=== PATIENT | female | born 1970 | race Caucasian/White ===

== ENCOUNTER → 2022-01-16 | Outpatient (CLI) | payer OTHER ==
[~2022-01-16] MED LIST: BYETTA SC; DELTASONE PO; GLUC500T PO; NOVOLOG INSULIN SC
== END ==
LOC: M WHC 12:22
PROVIDERS: ATTEND Physician Assistant
DX: Z12.31 Encounter for screening mammogram for malignant neoplasm of breast (principal)

== ENCOUNTER → 2022-04-04 | Outpatient (REF) | payer OTHER ==
[2022-04-04 17:07] LABS: ALBUMIN 3.5 GM/DL (3.2-5.2); ALT/SGPT 25 U/L (12-78); BILIRUBIN,TOTAL 2.5 MG/DL (0.2-1.0); BLOOD UREA NITROGEN 12 MG/DL (7-18); CALCIUM LEVEL 8.6 MG/DL (8.5-10.1); CARBON DIOXIDE LEVEL 26 MEQ/L (21-32); CHLORIDE LEVEL 102 MEQ/L (98-107); CREATININE FOR GFR 0.53 MG/DL (0.55-1.30); GLOMERULAR FILTRATION RATE > 60.0 (>58); GLUCOSE, FASTING 267 MG/DL (70-100); SODIUM LEVEL 135 MEQ/L (136-145); TOTAL PROTEIN 6.5 GM/DL (6.4-8.2)
[2022-04-04 17:08] LABS: HEMOGLOBIN A1c 8.2 %
[2022-04-04 18:31] LABS: MALB URINE SIEMENS 82.3 MG/L; MAU/CREAT RATIO 57.5 MCG/MG (0.0-30.0)
== END ==
LOC: M LAB REF 16:12
PROVIDERS: ATTEND Physician Assistant
DX: E11.3211 Type 2 diabetes mellitus with mild nonproliferative diabetic retinopathy with macular edema, right eye (principal)

== ENCOUNTER → 2022-05-13 | Outpatient (CLI) | payer OTHER | LOC: M WHC 06:34 | PROVIDERS: ATTEND Physician Assistant | DX: E80.6 Other disorders of bilirubin metabolism (principal); K80.20 Calculus of gallbladder without cholecystitis without obstruction ==

== ENCOUNTER → 2022-07-11 | Outpatient (CLI) | payer OTHER | LOC: M LABSMTC 08:57 | PROVIDERS: ATTEND Anesthesiology | DX: Z01.812 Encounter for preprocedural laboratory examination (principal); Z20.822 Contact with and (suspected) exposure to COVID-19 ==

== ENCOUNTER 2022-07-16 06:51 | Day surgery (SDC) | payer OTHER ==
[~2022-07-16] VITALS: Ht 157.5 cm; Wt 70.8 kg
[~2022-07-16 06:51] MED LIST changes: +ATOR1TAB19 PO; +BASA100I SC; +LISI5TAB11 PO; +METF500T13 PO; +NS 1,000 ML IV ONE; +TRUL0.5I SC; +VITA100093 PO
[2022-07-16] MEDS ORDERED: INSULIN LISPRO (NovoLOG) PER UNIT SC ONE (07:45)
[2022-07-16] MEDS ORDERED: propofoL 200 MG/20 ML VIAL As Ordered ONE (07:55)
[2022-07-16] MEDS ORDERED: LIDOCAINE 2% 100MG/5ML SDV (FOR ANES.) As Ordered ONE ×2 (07:55→08:07)
[2022-07-16 08:40] VITALS: BP 131/69
== END 2022-07-16 08:55 | disposition home or self-care (01) ==
LOC: M OPP 06:51
PROVIDERS: ATTEND Surgery
DX: K64.0 First degree hemorrhoids (principal); R19.4 Change in bowel habit; E11.9 Type 2 diabetes mellitus without complications; I10 Essential (primary) hypertension; Z79.02 Long term (current) use of antithrombotics/antiplatelets; Z79.4 Long term (current) use of insulin; Z79.899 Other long term (current) drug therapy
CPT/HCPCS: 45378; J1815

== ENCOUNTER → 2022-10-16 | Outpatient (REF) | payer OTHER ==
[~2022-10-16] MED LIST changes: -NS 1,000 ML IV ONE
[2022-10-16 17:03] LABS: HEMOGLOBIN 16.6 g/dl (12.0-15.5); MEAN CORPUSCULAR HEMOGLOBIN 30.5 pg (27.0-33.0); MEAN CORPUSCULAR HGB CONC 36.1 g/dl (32.0-36.5); MEAN CORPUSCULAR VOLUME 84.4 fl (80.0-96.0); PLATELET COUNT, AUTOMATED 251 10^3/uL (150-450); RED BLOOD COUNT 5.45 10^6/uL (4.00-5.40); WHITE BLOOD COUNT 10.1 10^3/uL (4.0-10.0)
[2022-10-16 17:19] LABS: ALBUMIN 3.6 G/DL (3.2-5.2); ALKALINE PHOSPHATASE 77 U/L (46-116); ALT/SGPT 19 U/L (7.0-40); AST/SGOT 11 U/L (<34); BILIRUBIN,TOTAL 2.6 MG/DL (0.3-1.2); BLOOD UREA NITROGEN 16 MG/DL (9-23); CARBON DIOXIDE LEVEL 28 MMOL/L (20-31); CHLORIDE LEVEL 102 MMOL/L (98-107); CREATININE FOR GFR 0.54 MG/DL (0.55-1.30); GLOMERULAR FILTRATION RATE > 60.0 (>51); GLUCOSE, FASTING 234 MG/DL (60-100); POTASSIUM SERUM 5.2 MMOL/L (3.5-5.1); SODIUM LEVEL 135 MMOL/L (136-145); TOTAL PROTEIN 6.5 G/DL (5.7-8.2)
[2022-10-16 17:26] LABS: HEMOGLOBIN A1c 8.6 % (4.0-6.0)
== END ==
LOC: M LAB REF 16:09
PROVIDERS: ATTEND Physician Assistant
DX: E11.65 Type 2 diabetes mellitus with hyperglycemia (principal); E11.40 Type 2 diabetes mellitus with diabetic neuropathy, unspecified

== ENCOUNTER → 2022-10-31 | Outpatient (REF) | payer OTHER ==
[2022-10-31 17:59] LABS: CREATININE, URINE 153.9 MG/DL
[2022-10-31 18:00] LABS: MAU/CREAT RATIO 99.4 MCG/MG (0.0-30.0)
== END ==
LOC: M LAB REF 16:13
PROVIDERS: ATTEND Physician Assistant
DX: E11.65 Type 2 diabetes mellitus with hyperglycemia (principal); E11.40 Type 2 diabetes mellitus with diabetic neuropathy, unspecified; N30.01 Acute cystitis with hematuria

== ENCOUNTER → 2023-10-21 | Outpatient (REF) | payer OTHER ==
[2023-10-21 17:43] LABS: CREATININE, URINE 52.6 MG/DL; MAU/CREAT RATIO 134.9 MCG/MG (0.0-30.0)
== END ==
LOC: M LAB REF 16:30
PROVIDERS: ATTEND Physician Assistant
DX: E11.65 Type 2 diabetes mellitus with hyperglycemia (principal); E11.40 Type 2 diabetes mellitus with diabetic neuropathy, unspecified

== ENCOUNTER → 2023-10-24 | Outpatient (CLI) | payer OTHER ==
[2023-10-24 10:09] LABS: HEMATOCRIT 39.2 % (36.0-47.0); HEMOGLOBIN 14.3 g/dl (12.0-15.5); MEAN CORPUSCULAR HEMOGLOBIN 30.4 pg (27.0-33.0); MEAN CORPUSCULAR HGB CONC 36.5 g/dl (32.0-36.5); MEAN CORPUSCULAR VOLUME 83.4 fl (80.0-96.0); PLATELET COUNT, AUTOMATED 266 10^3/uL (150-450); WHITE BLOOD COUNT 10.9 10^3/uL (4.0-10.0)
[2023-10-24 10:35] LABS: FREE T4 1.22 NG/DL (0.89-1.76); THYROID STIMULATING HORMONE 1.722 uIU/ML (0.55-4.78)
[2023-10-24 10:44] LABS: ALBUMIN 3.1 G/DL (3.2-5.2); ALKALINE PHOSPHATASE 109 U/L (46-116); ALT/SGPT 45 U/L (7.0-40); AST/SGOT 21 U/L (<34); BILIRUBIN,TOTAL 3.7 MG/DL (0.3-1.2); BLOOD UREA NITROGEN 15 MG/DL (9-23); CALCIUM LEVEL 9.2 MG/DL (8.5-10.1); CARBON DIOXIDE LEVEL 27 MMOL/L (20-31); CHLORIDE LEVEL 103 MMOL/L (98-107); CHOLESTEROL LEVEL 140 MG/DL (<200); CHOLESTEROL RISK RATIO 2.69 (<5); CREATININE FOR GFR 0.59 MG/DL (0.55-1.30); GLOMERULAR FILTRATION RATE > 60.0 (>51); GLUCOSE, FASTING 286 MG/DL (60-100); HDL CHOLESTEROL 51.9 MG/DL (>40); LDL CHOLESTEROL 58.3 MG/DL (<100); NON-HDL-C 88.1 MG/DL; POTASSIUM SERUM 4.5 MMOL/L (3.5-5.1); SODIUM LEVEL 136 MMOL/L (136-145); TOTAL PROTEIN 6.3 G/DL (5.7-8.2); TRIGLYCERIDES LEVEL 149 MG/DL (<150)
== END ==
LOC: M LAB 08:57
PROVIDERS: ATTEND Physician Assistant
DX: R63.5 Abnormal weight gain (principal); R09.A2 Foreign body sensation, throat; E11.65 Type 2 diabetes mellitus with hyperglycemia; E11.40 Type 2 diabetes mellitus with diabetic neuropathy, unspecified

== ENCOUNTER → 2023-11-04 | Outpatient (CLI) | payer OTHER ==
[~2023-11-04] MED LIST changes: +E-Z-GAS II EFFERVESCENT PACKET (SODIUM BICARB./CITRIC ACID/SIMETHICONE) As Ordered ONE; +E-Z-HD 98% w/w 340GM SUSP BTL As Ordered ONE; +E-Z-PAQUE 96% w/w SUSP 176GM BTL As Ordered ONE
== END ==
LOC: M RAD 09:46
PROVIDERS: ATTEND Physician Assistant
DX: R63.5 Abnormal weight gain (principal); R09.A2 Foreign body sensation, throat

== ENCOUNTER → 2023-11-10 | Outpatient (REF) | payer OTHER ==
[~2023-11-10] MED LIST changes: -E-Z-GAS II EFFERVESCENT PACKET (SODIUM BICARB./CITRIC ACID/SIMETHICONE) As Ordered ONE; -E-Z-HD 98% w/w 340GM SUSP BTL As Ordered ONE; -E-Z-PAQUE 96% w/w SUSP 176GM BTL As Ordered ONE
[2023-11-10 10:51] LABS: APPEARANCE, URINE CLEAR (CLEAR); BACTERIA, URINE AUTO NEGATIVE (NEGATIVE); BILIRUBIN, URINE AUTO NEGATIVE (NEGATIVE); BLOOD, URINE BLOOD NEGATIVE (NEGATIVE); COLOR, URINE YELLOW (YELLOW); GLUCOSE, URINE (UA) AUTO 3+ mg/dL (NEGATIVE); KETONE, URINE AUTO NEGATIVE (NEGATIVE); LEUKOCYTE ESTERASE, URINE AUTO 1+ (NEGATIVE); NITRITE, URINE AUTO NEGATIVE (NEGATIVE); PROTEIN, URINE AUTO NEGATIVE (NEGATIVE); RBC, URINE AUTO 5 /HPF (0-3); SPECIFIC GRAVITY URINE AUTO 1.024 (1.002-1.035); SQUAMOUS EPITHELIAL CELL UR AU 3 /HPF (0-6); WBC, URINE AUTO 19 /HPF (0-3)
== END ==
LOC: M LAB REF 09:46
PROVIDERS: ATTEND Physician Assistant
DX: N39.0 Urinary tract infection, site not specified (principal)

== ENCOUNTER → 2023-12-18 | Outpatient (REF) | payer OTHER ==
[2023-12-18 18:36] LABS: ALBUMIN 3.2 G/DL (3.2-5.2); ALKALINE PHOSPHATASE 89 U/L (46-116); ALT/SGPT 19 U/L (7.0-40); AST/SGOT 10 U/L (<34); BILIRUBIN,TOTAL 2.2 MG/DL (0.3-1.2); BLOOD UREA NITROGEN 12 MG/DL (9-23); CALCIUM LEVEL 8.7 MG/DL (8.5-10.1); CARBON DIOXIDE LEVEL 26 MMOL/L (20-31); CHLORIDE LEVEL 105 MMOL/L (98-107); CREATININE FOR GFR 0.54 MG/DL (0.55-1.30); GLOMERULAR FILTRATION RATE > 60.0 (>51); GLUCOSE, FASTING 251 MG/DL (60-100); POTASSIUM SERUM 4.5 MMOL/L (3.5-5.1); SODIUM LEVEL 138 MMOL/L (136-145); TOTAL PROTEIN 6.3 G/DL (5.7-8.2)
[2023-12-18 18:38] LABS: CREATININE, URINE 102.5 MG/DL
[2023-12-18 18:39] LABS: MAU/CREAT RATIO 90.7 MCG/MG (0.0-30.0)
== END ==
LOC: M LAB REF 16:18
PROVIDERS: ATTEND Physician Assistant
DX: K80.20 Calculus of gallbladder without cholecystitis without obstruction (principal); E80.6 Other disorders of bilirubin metabolism; R80.9 Proteinuria, unspecified; Z11.9 Encounter for screening for infectious and parasitic diseases, unspecified

== ENCOUNTER 2024-01-05 09:15 | Emergency (ER) | payer OTHER ==
[~2024-01-05] VITALS: Ht 157.5 cm; Wt 80.9 kg
[2024-01-05 10:11] LABS: BASO # 0.1 10^3/uL (0.0-0.2); BASO % 0.4 % (0.0-1.0); EOS # 0.1 10^3/uL (0.0-0.5); EOS % 0.6 % (0.0-3.0); HEMATOCRIT 44.9 % (36.0-47.0); HEMOGLOBIN 16.5 g/dl (12.0-15.5); LYMPH # 1.8 10^3/uL (1.5-5.0); LYMPH % 10.9 % (24.0-44.0); MEAN CORPUSCULAR HEMOGLOBIN 30.8 pg (27.0-33.0); MEAN CORPUSCULAR VOLUME 83.8 fl (80.0-96.0); MONO # 0.5 10^3/uL (0.0-0.8); MONO % 3.3 % (2.0-8.0); NEUTROPHILS # 13.7 10^3/uL (1.5-8.5); NEUTROPHILS % 84.3 % (36.0-66.0); PLATELET COUNT, AUTOMATED 290 10^3/uL (150-450); RED BLOOD COUNT 5.36 10^6/uL (4.00-5.40); WHITE BLOOD COUNT 16.2 10^3/uL (4.0-10.0)
[2024-01-05] MEDS: ONDANSETRON 4MG 2ML VIAL IV ONE ×2 (10:13→13:47)
[2024-01-05] MEDS: MORPHINE 4 MG/ML 1ML VIAL IV PRN (10:14)
[2024-01-05] MEDS: NS 1,000 ML IV ONE ×2 (10:15→13:47)
[2024-01-05 10:18] LABS: MEAN CORPUSCULAR HGB CONC 36.7 g/dl (32.0-36.5)
[2024-01-05 10:22] LABS: ERYTHROCYTE SEDIMENTATION RATE 16 mm/hr (0-30)
[2024-01-05 10:35] LABS: ALKALINE PHOSPHATASE 89 U/L (46-116); ALT/SGPT 14 U/L (7.0-40); AST/SGOT < 8 U/L (<34); BILIRUBIN,DIRECT 0.9 MG/DL (<0.4); BILIRUBIN,TOTAL 3.6 MG/DL (0.3-1.2); BLOOD UREA NITROGEN 19 MG/DL (9-23); CALCIUM LEVEL 8.7 MG/DL (8.5-10.1); CARBON DIOXIDE LEVEL 23 MMOL/L (20-31); CHLORIDE LEVEL 102 MMOL/L (98-107); CREATININE FOR GFR 0.68 MG/DL (0.55-1.30); GLOMERULAR FILTRATION RATE > 60.0 (>51); GLUCOSE, FASTING 374 MG/DL (60-100); POTASSIUM SERUM 5.4 MMOL/L (3.5-5.1); SODIUM LEVEL 135 MMOL/L (136-145); TOTAL PROTEIN 7.5 G/DL (5.7-8.2)
[2024-01-05 10:42] LABS: PROCALCITONIN 0.06 ng/ml
[2024-01-05] MEDS: LIDOCAINE 2% 5ML JELLY UROJET TOP ONE (11:25)
[2024-01-05] MEDS: MORPHINE 4 MG/ML 1ML VIAL IV ONE (13:48)
[2024-01-05] MEDS: HumuLIN R (REGULAR) INSULIN (NovoLIN R) **100U/ML** PER UNIT IV ONE (13:49)
[2024-01-05] MEDS ORDERED: GABA-1171 PO ×2 (14:39)
[2024-01-05] MEDS ORDERED: VITA200020 PO (14:39)
[2024-01-05] MEDS ORDERED: PERI12LIQ PO (14:39)
[2024-01-05] MEDS ORDERED: DULA4.5P SQ (14:39)
[2024-01-05] MEDS ORDERED: B-COCAP7 PO (14:39)
[2024-01-05] MEDS ORDERED: GLIP5TAB20 PO (14:39)
[2024-01-05] MEDS ORDERED: OMEP-173 PO (14:39)
[2024-01-05] MEDS ORDERED: HOME MED LIST COMPLETE! XX SCH (14:50)
[2024-01-05] MEDS: glipiZIDE XL 5 MG TABCR PO ONE (15:04)
[2024-01-05] MEDS: GABAPENTIN 100 MG CAP PO ONE (15:04)
[2024-01-05 15:05] VITALS: BP 169/83
[2024-01-05] MEDS: ATORVASTATIN 20 MG TAB PO ONE (15:05)
[2024-01-05] MEDS: metFORMIN (GLUCOPHAGE) 500MG TAB PO ONE (15:05)
[2024-01-05] MEDS: lisinopriL 5 MG TAB PO ONE (15:05)
[2024-01-05 15:59] VITALS: BP 181/92; TEMP 98; O2SAT 95
== END 2024-01-05 16:00 | disposition short-term general hospital (02) ==
LOC: EDBD 09:15 → M ED 09:15
DX: M54.50 Low back pain, unspecified (principal); R33.9 Retention of urine, unspecified; E11.65 Type 2 diabetes mellitus with hyperglycemia; I10 Essential (primary) hypertension; I45.81 Long QT syndrome; M25.78 Osteophyte, vertebrae; Z79.02 Long term (current) use of antithrombotics/antiplatelets; Z79.811 Long term (current) use of aromatase inhibitors; Z79.4 Long term (current) use of insulin; Z79.899 Other long term (current) drug therapy
CPT/HCPCS: 51702; 71046; 72072; 72110; 80047; 80048; 80076; 81001; 83605; 84145; 85025; 85652; 86140; 87040; 87086; 93005; 93041; 96361; 96374; 96375; 96376; 99285; J1815; J2405

== ENCOUNTER 2024-03-01 13:34 | Emergency (ER) | payer OTHER ==
[~2024-03-01] VITALS: Ht 157.5 cm; Wt 76.3 kg
[~2024-03-01 13:34] MED LIST changes: +B-COCAP7 PO; +DULA4.5P SQ; +GABA-1171 PO; +GLIP5TAB20 PO; +OMEP-173 PO; +PERI12LIQ PO; +VITA200020 PO
[2024-03-01] MEDS: ACETAMINOPHEN 325 MG TAB PO ONE (14:56)
[2024-03-01] MEDS: diazePAM 10MG/2ML SYRINGE IV ONE (14:58)
[2024-03-01] MEDS: KETOROLAC 30 MG/ML 1ML VIAL IV ONE (14:58)
[2024-03-01] MEDS: NS 500 ML IV ONE (16:41)
[2024-03-01 17:02] LABS: MEAN CORPUSCULAR HEMOGLOBIN 30.6 pg (27.0-33.0); MEAN CORPUSCULAR HGB CONC 35.9 g/dl (32.0-36.5); MEAN CORPUSCULAR VOLUME 85.3 fl (80.0-96.0); PLATELET COUNT, AUTOMATED 141 10^3/uL (150-450); RED BLOOD COUNT 4.57 10^6/uL (4.00-5.40); WHITE BLOOD COUNT 12.9 10^3/uL (4.0-10.0)
[2024-03-01 17:16] LABS: BLOOD UREA NITROGEN 13 MG/DL (9-23); CARBON DIOXIDE LEVEL 21 MMOL/L (20-31); CHLORIDE LEVEL 108 MMOL/L (98-107); CREATININE FOR GFR 0.62 MG/DL (0.55-1.30); GLOMERULAR FILTRATION RATE > 60.0 (>51); GLUCOSE, FASTING 160 MG/DL (60-100); POTASSIUM SERUM 4.6 MMOL/L (3.5-5.1); SODIUM LEVEL 138 MMOL/L (136-145)
[2024-03-01 17:45] LABS: VENOUS HCO3 20.9 MMOL/L (23.0-27.0); VENOUS O2 SATURATION 92.7 % (60.0-80.0); VENOUS PARTIAL PRESSURE CO2 46.4 mmHg (38.0-50.0); VENOUS PARTIAL PRESSURE O2 70.2 mmHg (30.0-50.0); VENOUS PH 7.272 UNITS (7.330-7.430); VENOUS STANDARD HCO3 19.5 MMOL/L; VENOUS TOTAL CO2 22.3 MMOL/L (24.0-28.0)
[2024-03-01] MEDS: HYDROMORPHONE HCL 0.5 MG/ 0.5 ML SYRINGE IV PRN (17:46)
[2024-03-01] MEDS: tiZANidine 4 MG TAB PO ONE (20:40)
[2024-03-01] MEDS: methylPREDNISolone 125MG 2ML VIAL IV ONE (20:40)
[2024-03-02 02:20] VITALS: BP 180/89; TEMP 99.2; O2SAT 97
== END 2024-03-02 02:54 | disposition short-term general hospital (02) ==
LOC: M ED 13:34 → EDBD 13:34 → M ED 03-02 02:54
DX: M51.16 Intervertebral disc disorders with radiculopathy, lumbar region (principal); I10 Essential (primary) hypertension; E11.9 Type 2 diabetes mellitus without complications; Z79.02 Long term (current) use of antithrombotics/antiplatelets; Z79.4 Long term (current) use of insulin; Z79.899 Other long term (current) drug therapy
CPT/HCPCS: 36415; 51702; 72148; 80047; 80048; 81001; 82803; 85027; 96374; 96375; 99284; J1171; J1885; J2919; J3360

== ENCOUNTER → 2024-03-23 | Outpatient (REF) | payer OTHER | LOC: M LAB REF 16:59 | PROVIDERS: ATTEND Physician Assistant | DX: R30.0 Dysuria (principal) ==

== ENCOUNTER → 2024-06-13 | Outpatient (CLI) | payer OTHER ==
[2024-06-13 11:46] LABS: CREATININE, URINE 102.5 MG/DL
== END ==
LOC: M LAB 10:20
PROVIDERS: ATTEND Physician Assistant
DX: E11.3211 Type 2 diabetes mellitus with mild nonproliferative diabetic retinopathy with macular edema, right eye (principal)

== ENCOUNTER → 2024-07-20 | Outpatient (CLI) | payer OTHER | LOC: M RAD 14:14 | PROVIDERS: ATTEND Physician Assistant | DX: R33.9 Retention of urine, unspecified (principal) ==

== ENCOUNTER 2024-12-20 15:52 | Inpatient (IN) | payer OTHER ==
[~2024-12-20] VITALS: Ht 157.5 cm; Wt 82.1 kg
[~2024-12-20 15:52] MED LIST changes: +CELE1CAP99 PO; +DULA4.5P SC; -DULA4.5P SQ; +GLIP-318 PO; -GLIP5TAB20 PO; +INSU100I43 SC; +TIZA2TA PO
[2024-12-20] MEDS: ONDANSETRON 4MG 2ML VIAL IV ONE (18:16)
[2024-12-20] MEDS: MORPHINE 4 MG/ML 1 ML VIAL IV ONE ×2 (18:17→20:40)
[2024-12-20 18:20] LABS: BASO # 0.1 10^3/uL (0.0-0.2); BASO % 0.5 % (0.0-1.0); EOS # 0.1 10^3/uL (0.0-0.5); EOS % 1.0 % (0.0-3.0); LYMPH # 3.5 10^3/uL (1.5-5.0); LYMPH % 24.2 % (24.0-44.0); MONO # 0.8 10^3/uL (0.0-0.8); MONO % 5.6 % (2.0-8.0); NEUTROPHILS # 9.9 10^3/uL (1.5-8.5); NEUTROPHILS % 68.1 % (36.0-66.0); PLATELET COUNT, AUTOMATED 253 10^3/uL (150-450)
[2024-12-20 18:30] LABS: ERYTHROCYTE SEDIMENTATION RATE 15 mm/hr (0-30)
[2024-12-20 18:46] LABS: C REACTIVE PROTEIN QUANTITATIV 0.80 MG/DL (<1.0)
[2024-12-20 18:47] LABS: CALCIUM LEVEL 9.5 MG/DL (8.5-10.1); CARBON DIOXIDE LEVEL 26 MMOL/L (20-31); CHLORIDE LEVEL 101 MMOL/L (98-107); CREATININE FOR GFR 0.77 MG/DL (0.55-1.30); GLOMERULAR FILTRATION RATE > 90.0 (>51); POTASSIUM SERUM 4.6 MMOL/L (3.5-5.1); SODIUM LEVEL 140 MMOL/L (136-145)
[2024-12-20] MEDS ORDERED: PROHANCE 279.3MG/ML 5ML VIAL As Ordered ONE (18:53)
[2024-12-20] MEDS ORDERED: PROHANCE 279.3MG/ML 15ML VIAL As Ordered ONE (18:53)
[2024-12-20] MEDS ORDERED: SEMA0.257 SC (22:26)
[2024-12-20] MEDS ORDERED: GABA-1490 PO (22:26)
[2024-12-20] MEDS ORDERED: SENN-186 PO (22:27)
[2024-12-20] MEDS ORDERED: MIRA3350 PO (22:27)
[2024-12-20] MEDS ORDERED: GLIP-320 PO (22:28)
[2024-12-20] MEDS ORDERED: METF-838 PO (22:31)
[2024-12-20] MEDS ORDERED: HOME MED LIST COMPLETE! XX SCH (22:40)
[2024-12-20] MEDS ORDERED: MORPHINE 2 MG/ML 1 ML VIAL IV PRN (23:00)
[2024-12-20] MEDS: INSULIN LISPRO (NovoLOG) PER UNIT SC SCH (23:00)
[2024-12-20] MEDS ORDERED: MAALOX 30 ML SUSP *UDC PO PRN (23:00)
[2024-12-20] MEDS ORDERED: GABAPENTIN 100 MG CAP PO PRN (23:00)
[2024-12-20] MEDS ORDERED: GLUCAGON INJ 1 MG VIAL SC PRN (23:00)
[2024-12-20] MEDS ORDERED: NALOXONE INJ 0.4 MG/1 ML VIAL IV PRN (23:00)
[2024-12-20] MEDS ORDERED: DEXTROSE 50% 50 ML SYRINGE IV PRN (23:00)
[2024-12-20] MEDS ORDERED: GABAPENTIN 300 MG CAP PO PRN (23:00)
[2024-12-20] MEDS ORDERED: GLUCOSE 4 GM CHEW PO PRN (23:00)
[2024-12-20 23:55] LABS: INR 1.02
[2024-12-21 00:08] LABS: ALT/SGPT 12.0 U/L (7.0-40); AST/SGOT 9.0 U/L (<34); MAGNESIUM LEVEL 1.8 MG/DL (1.8-2.4)
[2024-12-21] MEDS: ACETAMINOPHEN *IV* 1,000 MG in IV 1 EA IV SCH (00:12)
[2024-12-21] MEDS: LanTUS (INSULIN GLARGINE INJ) 1 UNITS/0.01 ML SC SCH (00:13)
[2024-12-21] MEDS: METHOCARBAMOL 1,000 MG/10 ML VIAL IV PRN (02:03)
[2024-12-21] MEDS: MORPHINE 4 MG/ML 1 ML VIAL IV PRN (04:23)
[2024-12-21 06:47] LABS: PLATELET COUNT, AUTOMATED 222 10^3/uL (150-450)
[2024-12-21 06:54] LABS: ALT/SGPT 13.0 U/L (7.0-40); AST/SGOT 11.0 U/L (<34); CALCIUM LEVEL 8.5 MG/DL (8.5-10.1); CARBON DIOXIDE LEVEL 23.0 MMOL/L (20-31); CHLORIDE LEVEL 101.0 MMOL/L (98-107); CREATININE FOR GFR 0.81 MG/DL (0.55-1.30); GLOMERULAR FILTRATION RATE 87.3 (>51); MAGNESIUM LEVEL 1.9 MG/DL (1.8-2.4); POTASSIUM SERUM 4.4 MMOL/L (3.5-5.1); SODIUM LEVEL 137.0 MMOL/L (136-145)
[2024-12-21] MEDS: INSULIN LISPRO (NovoLOG) PER UNIT SC SCH (07:55)
[2024-12-21] MEDS: ATORVASTATIN 10 MG TAB PO SCH (07:56)
[2024-12-21] MEDS: SENNA 8.6 MG TAB PO SCH (07:56)
[2024-12-21] MEDS: MIRALAX *UNIT DOSE* 17 GM PACKET PO SCH (07:56)
[2024-12-21 08:00] VITALS: BP 124/78; TEMP 97.5; O2SAT 96
[2024-12-21] MEDS: GABAPENTIN 300 MG CAP PO PRN (08:04)
[2024-12-21] MEDS: DOCUSATE SODIUM 100 MG CAPSULE PO SCH (09:00)
[2024-12-21 11:05] LABS: APPEARANCE, URINE CLEAR (CLEAR); BACTERIA, URINE AUTO NEGATIVE (NEGATIVE); BILIRUBIN, URINE AUTO NEGATIVE (NEGATIVE); BLOOD, URINE BLOOD NEGATIVE (NEGATIVE); GLUCOSE, URINE (UA) AUTO 2+ mg/dL (NEGATIVE); KETONE, URINE AUTO NEGATIVE (NEGATIVE); LEUKOCYTE ESTERASE, URINE AUTO NEGATIVE (NEGATIVE); MUCUS, URINE SMALL (NEGATIVE); NITRITE, URINE AUTO NEGATIVE (NEGATIVE); PROTEIN, URINE AUTO NEGATIVE (NEGATIVE); RBC, URINE AUTO 0 /HPF (0-3); SPECIFIC GRAVITY URINE AUTO 1.020 (1.002-1.035); SQUAMOUS EPITHELIAL CELL UR AU 1 /HPF (0-6); UROBILINOGEN, URINE AUTO 0.2 mg/dL (0.0-2.0); WBC, URINE AUTO 1 /HPF (0-3)
[2024-12-21 12:00] VITALS: BP 126/75; TEMP 97.5; O2SAT 98
[2024-12-21] MEDS ORDERED: MORPHINE 4 MG/ML 1 ML VIAL IV PRN (15:25)
[2024-12-21] MEDS: GABAPENTIN 300 MG CAP PO SCH (15:55)
[2024-12-21 16:00] VITALS: BP 134/78; TEMP 97.7; O2SAT 99
[2024-12-21 20:00] VITALS: BP 141/85; TEMP 97; O2SAT 98
[2024-12-22 00:11] VITALS: BP 107/69; TEMP 97.5; O2SAT 96
[2024-12-22 04:00] VITALS: BP 124/75; TEMP 97.3; O2SAT 98
[2024-12-22] MEDS: LIDOCAINE 5% PATCH TD SCH (08:29)
[2024-12-22 08:39] LABS: CALCIUM LEVEL 8.6 MG/DL (8.5-10.1); CARBON DIOXIDE LEVEL 23.0 MMOL/L (20-31); CHLORIDE LEVEL 102.0 MMOL/L (98-107); CREATININE FOR GFR 0.93 MG/DL (0.55-1.30); GLOMERULAR FILTRATION RATE 74.0 (>51); POTASSIUM SERUM 4.6 MMOL/L (3.5-5.1); SODIUM LEVEL 138.0 MMOL/L (136-145)
[2024-12-22 12:10] VITALS: BP 146/87; TEMP 97.4; O2SAT 93
[2024-12-22] MEDS: HEPARIN SOD 5000 UNITS/ML 1 ML VIAL/SYRINGE SQ SCH (12:41)
[2024-12-22] MEDS: BISACODYL 10 MG SUPP PR ONE (15:42)
[2024-12-22 20:30] VITALS: BP 165/91; TEMP 97.2; O2SAT 96
[2024-12-22] MEDS: MOM 30 ML SUSPENSION UDC PO PRN (20:48)
[2024-12-23] VITALS: BP 135/76; TEMP 97.3; O2SAT 96
[2024-12-23 04:00] VITALS: BP 170/88; TEMP 97.3; O2SAT 100
[2024-12-23 07:27] LABS: CALCIUM LEVEL 8.5 MG/DL (8.5-10.1); CARBON DIOXIDE LEVEL 25 MMOL/L (20-31); CHLORIDE LEVEL 104 MMOL/L (98-107); CREATININE FOR GFR 0.78 MG/DL (0.55-1.30); GLOMERULAR FILTRATION RATE > 90.0 (>51); MAGNESIUM LEVEL 2.2 MG/DL (1.8-2.4); POTASSIUM SERUM 4.3 MMOL/L (3.5-5.1); SODIUM LEVEL 140 MMOL/L (136-145)
[2024-12-23] MEDS: SENNOSIDES/DOCUSATE SODIUM 8.6 MG/50MG TAB PO SCH (08:52)
[2024-12-23] MEDS: MORPHINE 4 MG/ML 1 ML VIAL IV PRN (09:56)
[2024-12-23 12:00] VITALS: BP 152/85; TEMP 97.2; O2SAT 94
[2024-12-23 20:25] VITALS: BP 169/94; TEMP 97.3; O2SAT 94
[2024-12-24 06:13] VITALS: BP 160/93; TEMP 97.3; O2SAT 96
[2024-12-24 06:49] LABS: BASO # 0.1 10^3/uL (0.0-0.2); BASO % 0.5 % (0.0-1.0); EOS # 0.2 10^3/uL (0.0-0.5); EOS % 2.2 % (0.0-3.0); LYMPH # 2.8 10^3/uL (1.5-5.0); LYMPH % 25.3 % (24.0-44.0); MONO # 0.6 10^3/uL (0.0-0.8); MONO % 5.6 % (2.0-8.0); NEUTROPHILS # 7.3 10^3/uL (1.5-8.5); NEUTROPHILS % 65.9 % (36.0-66.0); PLATELET COUNT, AUTOMATED 232 10^3/uL (150-450)
[2024-12-24 07:16] LABS: CALCIUM LEVEL 8.7 MG/DL (8.5-10.1); CARBON DIOXIDE LEVEL 22 MMOL/L (20-31); CHLORIDE LEVEL 104 MMOL/L (98-107); CREATININE FOR GFR 0.75 MG/DL (0.55-1.30); GLOMERULAR FILTRATION RATE > 90.0 (>51); MAGNESIUM LEVEL 2.0 MG/DL (1.8-2.4); POTASSIUM SERUM 4.6 MMOL/L (3.5-5.1); SODIUM LEVEL 137 MMOL/L (136-145)
[2024-12-24 08:00] VITALS: BP 156/91; TEMP 97; O2SAT 98
[2024-12-24] MEDS: LACTULOSE 20 GM/30 ML SYRUP UDC PO ONE (08:09)
[2024-12-24] MEDS: BISACODYL 10 MG SUPP PR PRN (08:16)
[2024-12-24 12:00] VITALS: BP 148/90; TEMP 97.5; O2SAT 98
[2024-12-24 16:00] VITALS: BP 150/82; TEMP 97.2; O2SAT 99
[2024-12-24 20:04] VITALS: BP 142/73; TEMP 97.3; O2SAT 97
[2024-12-25 05:38] VITALS: BP 117/76; TEMP 97.2; O2SAT 97
[2024-12-25 08:00] VITALS: BP 146/80; TEMP 97.5; O2SAT 95
[2024-12-25 08:10] LABS: PLATELET COUNT, AUTOMATED 236 10^3/uL (150-450)
[2024-12-25 08:45] LABS: CALCIUM LEVEL 8.9 MG/DL (8.5-10.1); CARBON DIOXIDE LEVEL 25.0 MMOL/L (20-31); CHLORIDE LEVEL 103.0 MMOL/L (98-107); CREATININE FOR GFR 0.8 MG/DL (0.55-1.30); GLOMERULAR FILTRATION RATE 88.6 (>51); MAGNESIUM LEVEL 1.8 MG/DL (1.8-2.4); POTASSIUM SERUM 4.4 MMOL/L (3.5-5.1); SODIUM LEVEL 140.0 MMOL/L (136-145)
[2024-12-25 12:00] VITALS: BP 160/86; TEMP 97.5; O2SAT 96
[2024-12-25 16:00] VITALS: BP 144/76; TEMP 97.5; O2SAT 98
[2024-12-25 20:07] VITALS: BP 133/75; TEMP 97.2; O2SAT 97
[2024-12-25 23:53] VITALS: BP 150/80; TEMP 97.3; O2SAT 98
[2024-12-26 05:30] VITALS: BP 147/81; TEMP 97.3; O2SAT 100
[2024-12-26 07:57] LABS: CALCIUM LEVEL 9.4 MG/DL (8.5-10.1); CARBON DIOXIDE LEVEL 24 MMOL/L (20-31); CHLORIDE LEVEL 102 MMOL/L (98-107); CREATININE FOR GFR 0.77 MG/DL (0.55-1.30); GLOMERULAR FILTRATION RATE > 90.0 (>51); MAGNESIUM LEVEL 1.9 MG/DL (1.8-2.4); POTASSIUM SERUM 4.3 MMOL/L (3.5-5.1); SODIUM LEVEL 139 MMOL/L (136-145)
[2024-12-26 08:00] VITALS: BP 155/81; TEMP 97.3; O2SAT 96
[2024-12-26 12:00] VITALS: BP 163/96; TEMP 97.5; O2SAT 98
[2024-12-26 16:00] VITALS: BP 129/79; TEMP 97.3; O2SAT 98
[2024-12-26 20:00] VITALS: BP 188/90; TEMP 97.4; O2SAT 98
[2024-12-26] MEDS ORDERED: MORPHINE 4 MG/ML 1 ML VIAL IV ONE (22:30)
[2024-12-26] MEDS ORDERED: HYDROMORPHONE HCL 0.5 MG/0.5 ML SYRINGE IV PRN (22:35)
[2024-12-26] MEDS: HYDROMORPHONE HCL 0.5 MG/0.5 ML SYRINGE IV PRN (23:46)
[2024-12-26] MEDS: ACETAMINOPHEN *IV* 1,000 MG in IV 1 EA IV SCH (23:55)
[2024-12-27] VITALS (10 sets, daily range): BP systolic 112–166; BP diastolic 62–85; TEMP 96.8–97.5; O2SAT 92–99
[2024-12-27] MEDS: FLEET ENEMA PR ONE (03:15)
[2024-12-27] MEDS: ONDANSETRON 4MG 2ML VIAL IV PRN (05:20)
[2024-12-27] MEDS ORDERED: HYDROmorphone HCL 2 MG/ML 1 ML VIAL As Ordered ONE (07:14)
[2024-12-27] MEDS ORDERED: MIDAZOLAM INJ 2 MG/2 ML VIAL As Ordered ONE (07:15)
[2024-12-27] MEDS ORDERED: SUGAMMADEX SODIUM 500 MG/5 ML VIAL As Ordered ONE (07:15)
[2024-12-27] MEDS ORDERED: dexAMETHasone 4 MG/ML 1 ML VIAL As Ordered ONE (07:15)
[2024-12-27] MEDS ORDERED: LIDOCAINE 2% 100 MG/5 ML SDV (FOR ANES.) As Ordered ONE (07:15)
[2024-12-27] MEDS ORDERED: ONDANSETRON 4MG 2ML VIAL As Ordered ONE (07:15)
[2024-12-27] MEDS ORDERED: ROCURONIUM BROMIDE 50MG/5ML VIAL As Ordered ONE (07:16)
[2024-12-27] MEDS ORDERED: ACETAMINOPHEN 1000MG/100ML IV BAG As Ordered ONE (07:23)
[2024-12-27] MEDS: methylPREDNISolone SUSP 40 MG/ML 1 ML VIAL As Ordered ONE (10:11)
[2024-12-27] MEDS: INSULIN LISPRO (NovoLOG) PER UNIT As Ordered ONE (11:26)
[2024-12-27] MEDS ORDERED: KETOROLAC 30 MG/ML 1 ML VIAL As Ordered ONE (12:40)
[2024-12-27] MEDS ORDERED: HYDROMORPHONE HCL 0.5 MG/0.5 ML SYRINGE IV PRN (13:05)
[2024-12-27] MEDS ORDERED: diphenhydrAMINE 50 MG/ML VIAL IV PRN (13:05)
[2024-12-27 14:28] LABS: BASO # 0.0 10^3/uL (0.0-0.2); BASO % 0.2 % (0.0-1.0); EOS # 0.0 10^3/uL (0.0-0.5); EOS % 0.1 % (0.0-3.0); LYMPH # 0.9 10^3/uL (1.5-5.0); LYMPH % 8.3 % (24.0-44.0); MONO # 0.2 10^3/uL (0.0-0.8); MONO % 1.6 % (2.0-8.0); NEUTROPHILS # 9.2 10^3/uL (1.5-8.5); NEUTROPHILS % 89.1 % (36.0-66.0); PLATELET COUNT, AUTOMATED 268 10^3/uL (150-450)
[2024-12-27 14:58] LABS: CALCIUM LEVEL 8.6 MG/DL (8.5-10.1); CARBON DIOXIDE LEVEL 21.0 MMOL/L (20-31); CHLORIDE LEVEL 105.0 MMOL/L (98-107); CREATININE FOR GFR 0.81 MG/DL (0.55-1.30); GLOMERULAR FILTRATION RATE 87.3 (>51); MAGNESIUM LEVEL 1.8 MG/DL (1.8-2.4); POTASSIUM SERUM 4.5 MMOL/L (3.5-5.1); SODIUM LEVEL 139.0 MMOL/L (136-145)
[2024-12-27] MEDS: LR 1,000 ML IV SCH (15:25)
[2024-12-27] MEDS ORDERED: CYCLOBENZAPRINE 10 MG TABLET PO PRN (17:45)
[2024-12-27] MEDS: ACETAMINOPHEN 325 MG TAB PO SCH (18:04)
[2024-12-27] MEDS: KETOROLAC 30 MG/ML 1 ML VIAL IV SCH (18:05)
[2024-12-27] MEDS: ceFAZolin SODIUM 2 GM in DEXTROSE 5% (D5W) ADV/MINI-BAG 50 ML IV SCH (20:22)
[2024-12-28 00:12] VITALS: O2SAT 95
[2024-12-28 05:11] VITALS: BP 116/68; TEMP 97.2; O2SAT 94
[2024-12-28 07:02] LABS: PLATELET COUNT, AUTOMATED 243 10^3/uL (150-450)
[2024-12-28 07:27] LABS: CALCIUM LEVEL 8.2 MG/DL (8.5-10.1); CARBON DIOXIDE LEVEL 25.0 MMOL/L (20-31); CHLORIDE LEVEL 104.0 MMOL/L (98-107); CREATININE FOR GFR 0.99 MG/DL (0.55-1.30); GLOMERULAR FILTRATION RATE 68.6 (>51); MAGNESIUM LEVEL 2.0 MG/DL (1.8-2.4); POTASSIUM SERUM 4.4 MMOL/L (3.5-5.1); SODIUM LEVEL 140.0 MMOL/L (136-145)
[2024-12-28 08:00] VITALS: BP 159/79; TEMP 97.3; O2SAT 98
[2024-12-28 08:23] VITALS: BP 143/76
[2024-12-28 12:00] VITALS: BP 157/94; TEMP 97.5; O2SAT 99
[2024-12-28] MEDS ORDERED: DOCU8.6T PO (13:22)
[2024-12-28] MEDS ORDERED: BISA10SU PR (13:22)
[2024-12-28] MEDS ORDERED: OXYC-517 PO (13:22)
[2024-12-28] MEDS ORDERED: ONDA-282 PO (13:22)
[2024-12-28] MEDS ORDERED: HEPARIN SOD 5000 UNITS/ML 1 ML VIAL/SYRINGE SQ SCH (21:00)
== END 2024-12-28 15:31 | disposition home or self-care (01) | DRG 520 ==
LOC: M ED 15:52 → M ED INP 22:59 → M MS5PR 12-21 01:40
PROVIDERS: ADMIT Internal Medicine; ATTEND Student in an Organized Health Care Education/Training Program
PROC: 0SB40ZZ Excision of Lumbosacral Disc, Open Approach (ICD-10-PCS; principal; 2024-12-27 07:30)
DX: M51.16 Intervertebral disc disorders with radiculopathy, lumbar region (principal); K59.09 Other constipation; E11.42 Type 2 diabetes mellitus with diabetic polyneuropathy; E78.5 Hyperlipidemia, unspecified; I10 Essential (primary) hypertension; M48.061 Spinal stenosis, lumbar region without neurogenic claudication; E11.65 Type 2 diabetes mellitus with hyperglycemia; E11.43 Type 2 diabetes mellitus with diabetic autonomic (poly)neuropathy; K31.84 Gastroparesis; Z79.899 Other long term (current) drug therapy; Z79.4 Long term (current) use of insulin

== ENCOUNTER → 2025-01-04 | Outpatient (CLI) | payer OTHER ==
[~2025-01-04] MED LIST changes: +BISA10SU PR; +DOCU8.6T PO; +GABA-1490 PO; +GLIP-320 PO; +METF-838 PO; +MIRA3350 PO; +ONDA-282 PO; +OXYC-517 PO; +SEMA0.257 SC; +SENN-186 PO
[2025-01-04 17:11] LABS: BASO # 0.1 10^3/uL (0.0-0.2); BASO % 0.6 % (0.0-1.0); EOS # 0.2 10^3/uL (0.0-0.5); EOS % 1.2 % (0.0-3.0); LYMPH # 2.9 10^3/uL (1.5-5.0); LYMPH % 18.7 % (24.0-44.0); MONO # 0.9 10^3/uL (0.0-0.8); MONO % 5.5 % (2.0-8.0); NEUTROPHILS # 11.5 10^3/uL (1.5-8.5); NEUTROPHILS % 73.1 % (36.0-66.0); PLATELET COUNT, AUTOMATED 382 10^3/uL (150-450)
== END ==
LOC: M WUC 14:35
PROVIDERS: ATTEND Nurse Practitioner Family
DX: D72.829 Elevated white blood cell count, unspecified (principal)

== ENCOUNTER 2025-01-22 23:58 | Emergency (ER) | payer OTHER ==
[~2025-01-22] VITALS: Ht 157.5 cm; Wt 83.1 kg
[2025-01-23] MEDS ORDERED: MELA10TA14 PO (00:16)
[2025-01-23 02:33] VITALS: BP 136/81; TEMP 96.8; O2SAT 99
== END 2025-01-23 03:37 | disposition left against medical advice (07) ==
LOC: M ED 23:58
DX: Z53.21 Procedure and treatment not carried out due to patient leaving prior to being seen by health care provider (principal)

== ENCOUNTER → 2025-03-22 | Outpatient (CLI) | payer OTHER ==
[~2025-03-22] MED LIST changes: +MELA10TA14 PO
== END ==
LOC: M RAD 09:59
PROVIDERS: ATTEND Physician Assistant
DX: M51.16 Intervertebral disc disorders with radiculopathy, lumbar region (principal)